=== PATIENT | female | born 1950 | race Caucasian/White ===

== ENCOUNTER 2017-01-21 08:09 | Emergency (ER) | payer OTHER ==
[2017-01-21 08:20] VITALS: BP 148/86
--- NOTE | 2017-01-21 08:52 | UC ---
Upper Extremity HPI - HPI Summary HPI Summary: per lead enterprise architect "c/o R wrist pain after a fall yeserday. States not able to do anything with hand. " Occured about 10 PM last night. pain 10/10 when she tries to move it. had minimal relief with 400 mgs ibuprofen. she does not recall what happened exactly. she was walking w/ her and tunred just right and fell. thinks she may have fallen on outstretched hand, but not sure. -right hand dominant. -unable to zip pants, uses toileting hygiene, open jar. -mild swelling -hurts to extend fingers but not to felx. -pain is in flexor and extensor and radial wrist. - History of Current Complaint Chief Complaint: UCUpperExtremity Stated Complaint: WRIST INJURY Time Seen by Provider: 01/21/17 08:19 - Allergies/Home Medications Allergies/Adverse Reactions: Allergies Allergy/AdvReac Type Severity Reaction Status Date / Time Penicillins Allergy Severe Edema Verified 01/21/17 08:12 shellfish Allergy Severe Hives Uncoded 01/21/17 08:12 whoping cough vaccine Allergy Swelling Uncoded 01/21/17 08:13 Home Medications: Home Medications Lansoprazole CAP (NF) [Prevacid CAP (NF)] 30 mg PO DAILY 01/21/17 [History Confirmed 01/21/17] PMH/Surg Hx/FS Hx/Imm Hx Previously Healthy: Yes Cardiovascular History: Hypertension GI/ History: Gastroesophageal Reflux - Surgical History Surgical History: Yes Surgery Procedure, Year, and Place: app- 2007, tonsilectomy age 12 - Family History Known Family History: Positive: Cardiac Disease Negative: Diabetes - Social History Alcohol Use: Occasionally Substance Use Type: None Smoking Status (MU): Former Smoker When Did the Patient Quit Smoking/Using Tobacco: 22 years ago Review of Systems Constitutional: Negative Skin: Negative Eyes: Negative ENT: Negative Respiratory: Negative Cardiovascular: Negative Gastrointestinal: Negative Genitourinary: Negative Motor: Negative Neurovascular: Negative Musculoskeletal: Arthralgia, Decreased ROM, Edema Neurological: Negative Psychological: Negative Is Patient Immunocompromised?: No All Other Systems Reviewed And Are Negative: Yes Physical Exam Triage Information Reviewed: Yes Appearance: Well-Appearing, Well-Nourished, Pain Distress - holding right wrist with left hand, flexor side up Vital Signs: Initial Vital Signs Temp 99.1 F 01/21/17 08:15 Pulse 86 01/21/17 08:15 Resp 16 01/21/17 08:15 BP 148/86 01/21/17 08:15 Vital Signs Reviewed: Yes Eye Exam: Normal ENT Exam: Normal Respiratory Exam: Normal Respiratory: Positive: Lungs clear, Normal breath sounds Cardiovascular: Positive: RRR, Pulses Normal, Brisk Capillary Refill, Murmur:Sys :Grade _?_/ - I Musculoskeletal: Positive: Other: - Mild swelling at extensor and flexor wrist with tenderness and bruising. there is more significant tenderness over radial wrist. good opposing finger toucg, but 3rd digit is most difficult. CR brisk, sensation intact. + 2 radial pulse. Neurological Exam: Normal Psychological Exam: Normal Skin Exam: Normal Upper Extremity Course/Dx - Course Course Of Treatment: ISTOP ref # [id number] - no prescriptions registered. Rt wrist xray - negative. ice. -narco 5/325 x 1 here for pain control - Differential Dx/Diagnosis Differential Diagnosis/HQI/PQRI: Contusion, Fracture (Closed), Hematoma, Strain , Sprain Provider Diagnoses: right wrist sprain Discharge - Discharge Plan Condition: Stable Disposition: HOME Meds/Orders/Equipment: WRIST RIGHT 3+ VWS [DX] Location: None Selected Patient Education Materials: Wrist Sprain (ED) Forms: *Gen. Provider Communication, *Work Release Referrals: No Primary Care Phys,NOPCP [Medical Doctor] - Malia Miles MD [Primary Care Provider] - 3 Days Additional Instructions: -make sure to ice as much as possible. 20 mins on/20 mins off w/ towel barrier. -take ibuprofen 600-800mgs for pain w/ food. Change to tylenol if unable to tolerate. -I have given you 2 out of work notes to decide which you need. -Wrist spint has been given. -We discussed that it can take up to 2 weeks for fracture to appear on xray images. If you still have significant pain, this should be re-xrayed. A copy of the report has been given to you.
[2017-01-21] MEDS ORDERED: HYDROcodone/ACETAMIN 5-325 MG* 1 TAB PO ONE (09:06)
--- NOTE | 2017-01-21 09:25 | RAD ---
INDICATION: Radial side right wrist pain after a fall the previous evening. COMPARISON: None. TECHNIQUE: 3 views right wrist. REPORT: The visualized bones are properly aligned and well corticated. The joint spaces are normal.There is no fracture, dislocation or other focal osseous abnormality. IMPRESSION: Normal radiograph of the right wrist. If the patient's symptoms persist, follow-up imaging is recommended.
== END 2017-01-21 09:58 | disposition home or self-care (01) ==
LOC: UCCORT 08:09
DX: S63.501A Unspecified sprain of right wrist, initial encounter (principal); W19.XXXA Unspecified fall, initial encounter; Y93.9 Activity, unspecified; Y92.9 Unspecified place or not applicable; I10 Essential (primary) hypertension; K21.9 Gastro-esophageal reflux disease without esophagitis; Z88.7 Allergy status to serum and vaccine; Z88.0 Allergy status to penicillin; Z91.013 Allergy to seafood; Z87.891 Personal history of nicotine dependence
CPT/HCPCS: 99213; G0463